=== PATIENT | female | born 1980 | race Caucasian/White ===

== ENCOUNTER 2019-08-06 21:58 | Emergency (ER) | payer SELFPAY ==
[~2019-08-06] VITALS: Ht 165.1 cm; Wt 105.0 kg
[2019-08-06 23:28] VITALS: BP 125/76
== END 2019-08-06 23:31 | disposition home or self-care (01) ==
LOC: ER 21:58
DX: B35.4 Tinea corporis (principal); L30.9 Dermatitis, unspecified
CPT/HCPCS: 99282

== ENCOUNTER 2020-03-11 14:04 | Emergency (ER) | payer BC ==
[~2020-03-11] VITALS: Ht 165.1 cm; Wt 100.0 kg
[2020-03-11] MEDS ORDERED: IBUPROFEN 600MG TABLET PO ONE (15:30)
[2020-03-11 19:33] VITALS: BP 129/85
== END 2020-03-11 19:50 | disposition home or self-care (01) ==
LOC: ER 14:04
DX: U07.1 COVID-19 (principal); J18.9 Pneumonia, unspecified organism
CPT/HCPCS: 71045; 93005; 99283; Z7610

== ENCOUNTER → 2020-09-20 | Outpatient (CLI) | payer BC ==
[2020-09-20 10:33] LABS: BASOPHILS % 1.1 % (0.0-2.0); EOSINOPHILS % 3.1 % (0.0-5.0); HEMATOCRIT. 38.4 % (36.0-48.0); HEMOGLOBIN. 13.5 g/dL (12.0-16.0); LYMPHOCYTES % 35.2 % (20.0-50.0); MEAN CORPUSCULAR VOLUME 88.2 fL (81.0-99.0); MEAN PLATELET VOLUME 8.2 fl (7.4-10.4); MONOCYTES % 6.3 % (2.0-8.0); NEUTROPHILS % 54.3 % (40.0-76.0); PLATELET 324 x1000/uL (130-400); RED BLOOD CELL COUNT 4.36 mill/uL (4.2-5.4); RED CELL DISTRIBUTION WIDTH 13.6 % (11.6-14.6)
[2020-09-20 10:55] LABS: CHLORIDE 109 mEq/L (98-107)
[2020-09-20 10:58] LABS: CLARITY URINE CLEAR (CLEAR); COLOR URINE YELLOW (YELLOW); KETONES URINE TRACE (NEGATIVE); LEUKOCYTE ESTERASE URINE NEGATIVE (NEGATIVE); NITRITE URINE NEGATIVE (NEGATIVE); OCCULT BLOOD URINE TRACE (NEGATIVE); PROTEIN URINE NEGATIVE (NEGATIVE); SPECIFIC GRAVITY URINE 1.031 (1.005-1.030); UROBILINOGEN URINE 0.2 E.U./dL (0.2-1.0)
[2020-09-20 11:07] LABS: HDL CHOLESTEROL 60 mg/dL (40-59); TOTAL IRON BINDING CAPACITY 372 ug/dL (250-450)
[2020-09-20 11:08] LABS: LDL CHOLESTEROL 156 mg/dL (5-100)
[2020-09-20 13:02] LABS: FOLIC ACID (FOLATE) SERUM >20 ng/mL ng/mL (>5.38)
[2020-09-20 13:15] LABS: VITAMIN B12 SERUM 556 pg/mL (211-911)
== END | disposition home or self-care (01) ==
LOC: LAB 10:02
PROVIDERS: ATTEND Specialist
DX: Z00.00 Encounter for general adult medical examination without abnormal findings (principal); I12.9 Hypertensive chronic kidney disease with stage 1 through stage 4 chronic kidney disease, or unspecified chronic kidney disease; N18.9 Chronic kidney disease, unspecified; E78.5 Hyperlipidemia, unspecified; R53.1 Weakness; E55.9 Vitamin D deficiency, unspecified
CPT/HCPCS: 36415; 80053; 80061; 81003; 82607; 82746; 83036; 83540; 83550; 84443; 84550; 85025